=== PATIENT | female | born 1980 | race African-American/Black ===

== ENCOUNTER 2017-01-16 22:24 | Emergency (ER) | payer MEDICAID ==
[~2017-01-16] VITALS: Ht 157.5 cm; Wt 74.0 kg
[~2017-01-16 22:24] MED LIST: CARB200T PO; NORC5TAB PO; PANT40TA3 PO; REST15CA PO
[2017-01-16 22:28] VITALS: BP 130/100; PULSE 92; RESP 14; TEMP 98.3; O2SAT 98
[2017-01-16] MEDS ORDERED: INDO50CA PO (22:58)
--- NOTE | 2017-01-16 23:06 | PD ---
HPI Chief Complaint: Musculoskeletal Complaint Time Seen by Provider: 23:06 Travel History International Travel<30 days: No Contact w/Intl Traveler<30days: No Traveled to known affect area: No History of Present Illness HPI 36-year-old female presents to the emergency department for evaluation left lower extremity pain. Patient has history of cervical cancer, underwent chemotherapy and is followed by Dr. Sandoval She is currently in remission. Patient was hospitalized in October for enteritis. He reports 2 weeks ago pain beginning in her left foot. She went to urgent care and they treated her for gout. She states the pain is only worsened and now involves the entire left lower extremity. The pain radiates up to her hip. Denies history of neuropathy. She has had no fever or chills. She has been taking indomethacin 3 times a day no resolution of her symptoms. She denies any weakness. No focal deficits. No other symptoms to report. PFSH Past Medical History Asthma: No Autoimmune Disease: No Cancer: Yes (HX OF CERVICAL CANCER) Cardiovascular Problems: No Chemotherapy: Yes (2007) COPD: Yes Cerebrovascular Accident: No Diminished Hearing: No Endocrine: No Gastrointestinal Disorders: Yes (COLOSTOMY) Genitourinary: No Headaches: Yes Hepatitis: No Hiatal Hernia: No Immune Disorder: No Kidney Stones: No Musculoskeletal: No Neurologic: Yes (SEIZURES ) Psychiatric: No Reproductive: No Respiratory: No Migraines: Yes Renal Failure: Yes Seizures: Yes (grand mal take carbomaapine) Tetanus Vaccination: < 5 Years Influenza Vaccination: No ?: Not LMP: DOES NOT GET ANY MORE : 6 Para: 4 Past Surgical History Abdominal Surgery: Yes (COLON RESECTION, COLOSTOMY PLACEMENT (2013)) Body Medical Devices: NONE Cardiac Surgery: No Section: Yes Ear Surgery: No Endocrine Surgery: No Eye Surgery: No Genitourinary Surgery: No Gynecologic Surgery: Yes () Oral Surgery: Yes (TEETH EXTRACTION) Thoracic Surgery: No Other Surgery: Yes Social History Alcohol Use: Yes (OCCASIONALLY) Tobacco Use: Yes (12 CIGARETTES/DAY) Substance Use: No (marijuana, months ago) Allergies-Medications (Allergen,Severity, Reaction): Coded Allergies: Penicillin (Verified Allergy, Severe, RASH, 01/16/17) Reported Meds & Prescriptions Reported Meds & Active Scripts Active Lortab (Hydrocodone-Acetaminophen) 5-325 Mg Tab 1 Tab PO Q6H PRN Reported Indomethacin 50 Mg Cap 50 Mg PO TID Take with food, milk, or antacids to decrease stomach adverse effects. Carbamazepine 200 Mg Tab 400 Mg PO Review of Systems Except as stated in HPI: all other systems reviewed are Neg Physical Exam Narrative GENERAL: Well-nourished, well-developed female patient in no acute distress SKIN: Warm and dry. HEAD: Normocephalic. EYES: No scleral icterus. No injection or drainage. NECK: Supple, trachea midline. No JVD or lymphadenopathy. CARDIOVASCULAR: Regular rate and rhythm without murmurs, gallops, or rubs. RESPIRATORY: Breath sounds equal bilaterally. No accessory muscle use. GASTROINTESTINAL: Abdomen soft, non-tender, nondistended. MUSCULOSKELETAL: No cyanosis, or edema. Equal strength bilateral lower extremity. Sensation intact distal lower extremities. Full flexion and extension of all the joints of the affected extremity. BACK: Nontender without obvious deformity. No CVA tenderness. Data Data Last Documented VS Vital Signs Date Time Temp Pulse Resp B/P Pulse Ox O2 Delivery O2 Flow Rate FiO2 01/17/17 01:50 98.9 76 18 123/55 100 01/16/17 22:28 Room Air Orders Iv Access Insert/Monitor (01/16/17 23:05) Complete Blood Count With Diff (01/16/17 23:05) Basic Metabolic Panel (Bmp) (01/16/17 23:05) Creatine Kinase (Cpk) (01/16/17 23:05) Hip, Uni(Ap&Lat) W Ap Pelvis (01/16/17 ) Morphine Inj (Morphine Inj) (01/16/17 23:15) Ondansetron Inj (Zofran Inj) (01/16/17 23:15) Ketorolac Inj (Toradol Inj) (01/16/17 23:15) Sodium Chlorid 0.9% 500 Ml Inj (Ns 500 M (01/16/17 23:15) Labs Laboratory Tests Test 01/16/17 23:40 White Blood Count 4.4 TH/MM3 Red Blood Count 3.91 MIL/MM3 Hemoglobin 12.2 GM/DL Hematocrit 36.8 % Mean Corpuscular Volume 94.2 FL Mean Corpuscular Hemoglobin 31.3 PG Mean Corpuscular Hemoglobin 33.2 % Concent Red Cell Distribution Width 14.5 % Platelet Count 380 TH/MM3 Mean Platelet Volume 7.1 FL Neutrophils (%) (Auto) 57.3 % Lymphocytes (%) (Auto) 35.2 % Monocytes (%) (Auto) 5.1 % Eosinophils (%) (Auto) 1.8 % Basophils (%) (Auto) 0.6 % Neutrophils # (Auto) 2.5 TH/MM3 Lymphocytes # (Auto) 1.5 TH/MM3 Monocytes # (Auto) 0.2 TH/MM3 Eosinophils # (Auto) 0.1 TH/MM3 Basophils # (Auto) 0.0 TH/MM3 CBC Comment DIFF FINAL Differential Comment Sodium Level 141 MEQ/L Potassium Level 3.9 MEQ/L Chloride Level 111 MEQ/L Carbon Dioxide Level 21.3 MEQ/L Anion Gap 9 MEQ/L Blood Urea Nitrogen 23 MG/DL Creatinine 1.24 MG/DL Estimat Glomerular Filtration 59 ML/MIN Rate Random Glucose 80 MG/DL Calcium Level 7.9 MG/DL Total Creatine Kinase 155 U/L MDM Medical Decision Making Medical Screen Exam Complete: Yes Emergency Medical Condition: Yes Medical Record Reviewed: Yes Differential Diagnosis Neuropathy versus radiculopathy versus septic joint versus septic arthritis versus metastatic disease Narrative Course 36-year-old female presents to emergency department for evaluation of left lower extremity pain. I have the patient with my attending physician Dr. Elizabeth. Based on the patient's history and recent illness, we'll draw basic labs and x-ray the hip. CBC is without acute concern. BMP is with BUN of 23, creatinine 1.24, GFR 59. Total creatine kinase is 155. Patient is given IV fluids. I have discussed with her the use of NSAIDs and limiting those based on her renal function. I will give her some additional pain control and encouraged follow-up with her primary care provider. I explained her that this may indeed be a neuropathy likely secondary to history of chemotherapy and encouraged her to discuss this with her primary care provider for possible alternatives the pain management. Diagnosis Primary Impression: Left leg pain Additional Impression: Renal insufficiency Referrals: Primary Care Physician Patient Instructions: General Instructions, Leg Pain (ED) Additional Instructions: Limit taking your NSAID pain medication Follow-up with your primary care provider Return immediately to the emergency department with any acute worsening of symptoms Med/Other Pt SpecificInfo: Med Stopped Scripts Hydrocodone-Acetaminophen (Lortab)5-325 Mg Tab1 Tab PO Q6H PRN (PAIN GREATER THAN 5) #12 TAB Ref 0 Prov:Zina Scott MD 01/17/17 Disposition: 01 DISCHARGE HOME Condition: Stable Adelaide Vital Jan 16, 2017 23:06
[2017-01-16] MEDS ORDERED: SODIUM CHLORID 0.9% 500 ML INJ 500 ML IV ONE (23:15)
[2017-01-16] MEDS ORDERED: ONDANSETRON HCL 4 MG/2 ML VIAL IV PUSH ONE (23:15)
[2017-01-16] MEDS ORDERED: MORPHINE SULFATE 4 MG/ML INJ IV PUSH ONE (23:15)
[2017-01-16] MEDS ORDERED: KETOROLAC TROMETHAMINE 30 MG/ML (IVP) VIAL IV PUSH ONE (23:15)
[2017-01-17 00:02] LABS: AUTOMATED NEUTROPHIL # 2.5 TH/MM3 (1.8-7.7); BASOPHIL % 0.6 % (0.0-2.0); EOSINOPHIL # 0.1 TH/MM3 (0-0.4); EOSINOPHIL % 1.8 % (0.0-4.0); HEMATOCRIT 36.8 % (35.0-46.0); HEMO FLAGS DIFF FINAL; LYMPH % 35.2 % (9.0-44.0); LYMPHOCYTE # 1.5 TH/MM3 (1.0-4.8); MEAN CELL VOLUME 94.2 FL (80.0-100.0); MEAN CORPUSCULAR HEMOGLOBIN 31.3 PG (27.0-34.0); MEAN CORPUSCULAR HGB CONC 33.2 % (32.0-36.0); MONO % 5.1 % (0.0-8.0); NEUT % 57.3 % (16.0-70.0); PLATELET COUNT 380 TH/MM3 (150-450); RED BLOOD COUNT 3.91 MIL/MM3 (4.00-5.30); RED CELL DISTRIBUTION WIDTH 14.5 % (11.6-17.2); WHITE BLOOD COUNT 4.4 TH/MM3 (4.0-11.0)
--- NOTE | 2017-01-17 00:06 | RADRPT ---
EXAM DATE/TIME: 01/16/2017 23:14 [facility] COMPARISON: No previous studies available for comparison. INDICATIONS : Left hip pain. MEDICAL HISTORY : Gout. SURGICAL HISTORY : None. ENCOUNTER: Initial ACUITY: 1 day PAIN SCORE: 6/10 LOCATION: Left hip FINDINGS: Examination of the left hip was performed with AP Pelvis. The primary and secondary trabecular patte rn of the femoral neck is intact. The hip joint is of normal width without significant sclerosis or bony hypertrophy. The acetabulum is grossly intact. CONCLUSION: 1. There is no evidence of acute fracture. Timothy Mckeon MD on January 17, 2017 at 0:04 Board Certified Radiologist. This report was verified electronically.
[2017-01-17 00:38] VITALS: RESP 16
[2017-01-17 01:23] LABS: BICARBONATE 21.3 MEQ/L (21.0-32.0); POTASSIUM 3.9 MEQ/L (3.5-5.1)
[2017-01-17] MEDS ORDERED: HYDR-3533 PO (01:35)
[2017-01-17 01:50] VITALS: BP 123/55; TEMP 98.9
== END 2017-01-17 01:58 | disposition home or self-care (01) ==
LOC: NEPB 22:24
DX: M79.605 Pain in left leg (principal); N28.9 Disorder of kidney and ureter, unspecified; F17.210 Nicotine dependence, cigarettes, uncomplicated; Z87.898 Personal history of other specified conditions
CPT/HCPCS: 73502; 80048; 82550; 85025; 96374; 96375; 99283; J1885; J2270; J2405; J7040

== ENCOUNTER 2017-01-29 14:19 | Emergency (ER) | payer MEDICAID, OTHER ==
[~2017-01-29 14:19] MED LIST changes: +HYDR-3533 PO; +INDO50CA PO; -NORC5TAB PO; -PANT40TA3 PO; -REST15CA PO
[2017-01-29 14:21] VITALS: BP 116/81; PULSE 116; RESP 16; TEMP 98.2; O2SAT 97
--- NOTE | 2017-01-29 16:33 | PD ---
HPI Chief Complaint: Injury Time Seen by Provider: 16:31 Travel History International Travel<30 days: No Contact w/Intl Traveler<30days: No Traveled to known affect area: No History of Present Illness HPI 36-year-old female presents to the emergency department with ongoing left lower leg and foot burning pain. Patient has been seen for this several times both at urgent care as well as here with x-rays of her hip performed at her last visit here. Patient has been treated with multiple doses of steroids as well as a trial of gabapentin without improvement. Patient was to follow-up with her primary care physician today to review the ongoing issue, however her Medicaid is still pending therefore she was sent here. Patient states she is been taking gabapentin 300 mg 3 times daily without improvement. Denies fever, chills, or other symptoms. She states the pain is across the entire dorsal foot , and is constant, but worse at night. She describes it as a burning achy pain. She states some mild swelling at times but currently not. There is been no specific injury to the area. There are no open wounds or erythema noted. Patient was treated recently for gout with indomethacin with worsening symptoms. PFSH Past Medical History Asthma: No Autoimmune Disease: No Cancer: Yes (HX OF CERVICAL CANCER) Cardiovascular Problems: No Chemotherapy: Yes (2007) COPD: Yes Cerebrovascular Accident: No Diminished Hearing: No Endocrine: No Gastrointestinal Disorders: Yes (COLOSTOMY) Genitourinary: No Headaches: Yes Hepatitis: No Hiatal Hernia: No Immune Disorder: No Kidney Stones: No Musculoskeletal: No Neurologic: Yes (SEIZURES ) Psychiatric: No Reproductive: No Respiratory: No Migraines: Yes Renal Failure: Yes Seizures: Yes (grand mal take carbomaapine) ?: Not : 6 Para: 4 Past Surgical History Abdominal Surgery: Yes (COLON RESECTION, COLOSTOMY PLACEMENT (2013)) Body Medical Devices: NONE Cardiac Surgery: No Section: Yes Ear Surgery: No Endocrine Surgery: No Eye Surgery: No Genitourinary Surgery: No Gynecologic Surgery: Yes () Oral Surgery: Yes (TEETH EXTRACTION) Thoracic Surgery: No Other Surgery: Yes Social History Alcohol Use: Yes (OCCASIONALLY) Tobacco Use: Yes (12 CIGARETTES/DAY) Substance Use: No (marijuana, months ago) Allergies-Medications (Allergen,Severity, Reaction): Coded Allergies: Penicillin (Verified Allergy, Severe, RASH, 01/16/17) Reported Meds & Prescriptions Reported Meds & Active Scripts Active Lortab (Hydrocodone-Acetaminophen) 5-325 Mg Tab 1 Tab PO Q6H PRN Reported Indomethacin 50 Mg Cap 50 Mg PO TID Take with food, milk, or antacids to decrease stomach adverse effects. Carbamazepine 200 Mg Tab 400 Mg PO Physical Exam Narrative GENERAL: Patient appears in no acute distress. SKIN: Warm and dry. Normal color. Normal turgor. No signs of open wound or cellulitis of the left foot. HEAD: Atraumatic. Normocephalic. EYES: Pupils equal and round. No scleral icterus. No injection or drainage. ENT: No nasal bleeding or discharge. Mucous membranes pink and moist. NECK: Trachea midline. No JVD. CARDIOVASCULAR: Regular rate and rhythm. Left foot pulses are 2+ and equal in both the dorsal pedal and posterior tibialis. RESPIRATORY: No accessory muscle use. Clear to auscultation. Breath sounds equal bilaterally. GASTROINTESTINAL: Abdomen soft, non-tender, nondistended. Hepatic and splenic margins not palpable. MUSCULOSKELETAL: Extremities without clubbing, cyanosis, or edema. No obvious deformities. Left foot appears normal with full range of motion and strength. Negative Homans sign. No point tenderness. Normal dorsiflexion and plantar flexion. NEUROLOGICAL: Awake and alert. No obvious cranial nerve deficits. Motor grossly within normal limits. Five out of 5 muscle strength in the arms and legs. Normal speech. PSYCHIATRIC: Appropriate mood and affect; insight and judgment normal. Data Data Last Documented VS Vital Signs Date Time Temp Pulse Resp B/P Pulse Ox O2 Delivery O2 Flow Rate FiO2 01/29/17 14:21 98.2 116 16 116/81 97 Room Air Orders Foot, Complete ([id number]) (01/29/17 16:03) [facility] Medical Decision Making Medical Screen Exam Complete: Yes Emergency Medical Condition: Yes Medical Record Reviewed: Yes Differential Diagnosis Left foot pain. Left ankle pain. Arthritis. Neuropathy. Narrative Course Patient is felt to be medically stable at time of exam. X-ray of the left foot is obtained. X-ray shows no acute findings. Per radiologist. My feeling is this is a neuralgia type pain. Patient is treated with gabapentin 300 mg 3 times daily to be increased to 600 mg 3 times daily in 3 days. Patient is given tramadol as well 50 mg one every 6 hours when necessary pain # 30. I do not feel an anti-inflammatory be beneficial for this patient as she has had multiple courses without improvement. Patient should follow-up with her primary care physician and perhaps be referred to a neurologist for further evaluation as needed. Diagnosis Primary Impression: Neuropathic pain of left foot Patient Instructions: General Instructions, Peripheral Neuropathy (ED) Additional Instructions: X-ray shows no acute findings. Per radiologist. My feeling is this is a neuralgia type pain. Patient is treated with gabapentin 300 mg 3 times daily to be increased to 600 mg 3 times daily in 3 days. Patient is given tramadol as well 50 mg one every 6 hours when necessary pain # 30. I do not feel an anti-inflammatory be beneficial for this patient as she has had multiple courses without improvement. Patient should follow-up with her primary care physician and perhaps be referred to a neurologist for further evaluation as needed. Med/Other Pt SpecificInfo: Prescription(s) given Disposition: 01 DISCHARGE HOME Condition: Stable Lewis Holly Jan 29, 2017 16:33
--- NOTE | 2017-01-29 16:49 | RADRPT ---
EXAM DATE/TIME: 01/29/2017 16:37 [facility] COMPARISON: FOOT LEFT COMPLETE ([id number]), June 06, 2015, 15:47. INDICATIONS : Left foot pain with no known injury. MEDICAL HISTORY : None. SURGICAL HISTORY : None. ENCOUNTER: Initial ACUITY: 1 month PAIN SCORE: 10/10 LOCATION: Left foot, dorsal surface. FINDINGS: Three view examination of the left foot demonstrates no soft tissue swelling, dislocation, or fractur e. The tarsal bones appear intact. The interphalangeal and metatarsophalangeal joints are intact. The calcaneus is intact. Bony mineralization is normal. CONCLUSION: Unremarkable examination of the left foot. Taqueria Aj MD on January 29, 2017 at 16:47 Board Certified Radiologist. This report was verified electronically.
[2017-01-29] MEDS ORDERED: GABA600T PO (17:03)
[2017-01-29] MEDS ORDERED: GABA300C5 PO (17:03)
[2017-01-29] MEDS ORDERED: TRAM50TA PO ×2 (17:03→17:04)
== END 2017-01-29 17:11 | disposition home or self-care (01) ==
LOC: NEPB 14:19
DX: G62.9 Polyneuropathy, unspecified (principal); M79.672 Pain in left foot; R20.8 Other disturbances of skin sensation
CPT/HCPCS: 73630; 99283

== ENCOUNTER 2018-02-18 16:18 | Emergency (ER) | payer SELFPAY ==
[~2018-02-18] VITALS: Ht 157.5 cm; Wt 50.0 kg
[~2018-02-18 16:18] MED LIST changes: +GABA300C5 PO; +GABA600T PO; +TRAM50TA PO
[2018-02-18 16:21] VITALS: BP 91/50; PULSE 96; RESP 15; TEMP 98.2; O2SAT 99
[2018-02-18] MEDS ORDERED: GABA600T PO (17:23)
--- NOTE | 2018-02-18 17:27 | PD ---
HPI Chief Complaint: Pain: Acute or Chronic Time Seen by Provider: 17:22 Travel History International Travel<30 days: No Contact w/Intl Traveler<30days: No Traveled to known affect area: No History of Present Illness HPI 37-year-old female with chronic neuropathy of the left foot presents to the ED requesting medication refill. She states that it's neuropathic pain with shooting quality, occasionally tingling and numbness. She denies limitations to range of motion or weakness of the foot. She denies acute injury. She states that she has not had any changes to her pain. Patient states that she takes 600 mg gabapentin 3 times a day, last dose a few days ago. PFSH Past Medical History Asthma: No Autoimmune Disease: No Cancer: Yes (HX OF CERVICAL CANCER) Cardiovascular Problems: No Chemotherapy: Yes COPD: Yes Cerebrovascular Accident: No Diminished Hearing: No Endocrine: No Gastrointestinal Disorders: Yes (COLOSTOMY) Genitourinary: No Headaches: Yes Hepatitis: No Hiatal Hernia: No Immune Disorder: No Kidney Stones: No Musculoskeletal: No Neurologic: Yes (SEIZURES ) Psychiatric: No Reproductive: No Respiratory: No Migraines: Yes Renal Failure: Yes Seizures: Yes (grand mal take carbomaapine) : 6 Para: 4 Past Surgical History Abdominal Surgery: Yes (COLON RESECTION, COLOSTOMY PLACEMENT (2013)) Body Medical Devices: NONE Cardiac Surgery: No Section: Yes Ear Surgery: No Endocrine Surgery: No Eye Surgery: No Genitourinary Surgery: No Gynecologic Surgery: Yes () Oral Surgery: Yes (TEETH EXTRACTION) Thoracic Surgery: No Other Surgery: Yes Social History Alcohol Use: Yes (OCCASIONALLY) Tobacco Use: Yes (12 CIGARETTES/DAY) Substance Use: No (marijuana, months ago) Allergies-Medications (Allergen,Severity, Reaction): Coded Allergies: penicillin G (Unverified Allergy, Severe, RASH, 07/14/17) Reported Meds & Prescriptions Reported Meds & Active Scripts Active Gabapentin 600 Mg Tab 600 Mg PO TID Reported Carbamazepine 200 Mg Tab 400 Mg PO Review of Systems Except as stated in HPI: all other systems reviewed are Neg Physical Exam Narrative GENERAL: Well-nourished, well-developed female in no acute distress. SKIN: Focused skin assessment warm/dry. HEAD: Normocephalic. EYES: No scleral icterus. No injection or drainage. NECK: Supple, trachea midline. No JVD or lymphadenopathy. CARDIOVASCULAR: Regular rate and rhythm without murmurs, gallops, or rubs. RESPIRATORY: Breath sounds equal bilaterally. No accessory muscle use. GASTROINTESTINAL: Abdomen soft, non-tender, nondistended. MUSCULOSKELETAL: No cyanosis, or edema. FOCUSED LEFT LOWER EXTREMITY EXAM: 2+ DP pulse. Foot is warm and well perfused. Patient retains full, active, painless ROM of the extremity. Neurovascularly intact distally. BACK: Nontender without obvious deformity. No CVA tenderness. Data Data Last Documented VS Vital Signs Date Time Temp Pulse Resp B/P (MAP) Pulse Ox O2 Delivery O2 Flow Rate FiO2 02/18/18 16:21 98.2 96 15 91/50 (64) 99 Orders Orders Gabapentin (Neurontin) (02/18/18 17:30) Ed Discharge Order (02/18/18 17:33) [facility] Medical Decision Making Medical Screen Exam Complete: Yes Emergency Medical Condition: Yes Differential Diagnosis chronic pain versus neuropathy versus medication refill versus other Narrative Course 37-year-old female with chronic neuropathy of the left foot presents to the ED requesting medication refill. he states that it's neuropathic pain with shooting quality, occasionally tingling and numbness. She denies limitations to range of motion or weakness of the foot. She states that she has not had any changes to her pain. Vitals reviewed. Exam of the foot is reassuring. Patient was prescribed a 1 months supply of gabapentin, first dose administered in the ED. She was advised to follow with her primary care for future refills. She indicated understanding of the instructions. She is stable and discharged home. Diagnosis Primary Impression: Neuropathic pain of left foot Referrals: Primary Care Physician Additional Instructions: Take medication as prescribed. Follow with your primary care for future refills. Return to the ED for any urgent or emergent medical condition. Scripts Gabapentin (Gabapentin) 600 Mg Tab 600 MG PO TID, #90 TAB 0 Refills Prov: Gerry Pompa MD 02/18/18 Disposition: 01 DISCHARGE HOME Condition: Stable Urmila Mckeon Feb 18, 2018 17:27
[2018-02-18] MEDS ORDERED: GABAPENTIN 300 MG CAP PO SCH (17:30)
== END 2018-02-18 18:08 | disposition home or self-care (01) ==
LOC: NEPK 16:18
DX: M79.2 Neuralgia and neuritis, unspecified (principal); M79.672 Pain in left foot; F17.210 Nicotine dependence, cigarettes, uncomplicated
CPT/HCPCS: 99283

== ENCOUNTER 2018-03-02 15:36 | Emergency (ER) | payer SELFPAY ==
[~2018-03-02] VITALS: Ht 157.5 cm; Wt 50.0 kg
[~2018-03-02 15:36] MED LIST changes: -GABA300C5 PO; -HYDR-3533 PO; -INDO50CA PO; -TRAM50TA PO
[2018-03-02 15:50] VITALS: BP 99/56; PULSE 100; RESP 18; TEMP 99.4; O2SAT 100
--- NOTE | 2018-03-02 16:46 | PD ---
HPI Chief Complaint: Pain: Acute or Chronic Time Seen by Provider: 16:16 Travel History International Travel<30 days: No Contact w/Intl Traveler<30days: No Traveled to known affect area: No History of Present Illness HPI 37-year-old female presents to the emergency department "to generate a bill to meet her share of cost for her Medicaid." Says she is on share of cost insurance and she needs to meet her share of cost to get in with a doctor, so she was told to come to the emergency room to generate a bill to meet her share of cost. She says she has history of chronic left foot pain and her foot constantly hurts. She takes gabapentin for her foot pain and last took it last week because she cannot afford a refill. She was seen here on February 18 and was given a prescription for a refill. She says she took the prescription to [facility] today and her Medicaid has not opened up to fill the prescription. She also has history of epilepsy and is on carbamazepine. She says she has a few pills left at home and a prescription refill at [facility]. She denies chest pain , shortness of breath, abdominal pain, fevers, vomiting. She has no emergent medical complaints today. She has not taken any other medications or tried any other treatments for her foot pain. Symptoms are mild to moderate in severity. No primary care provider. Dr. Allen is the doctor she sees for her left foot neuropathy. Allergies to penicillin. History of epilepsy, cervical cancer, colostomy, neuropathy. Has no other medical complaints. No other modifying factors or associated signs and symptoms. History Past Medical Histgory Tetanus Vaccination: Unknown Hx Cancer: Yes (HX OF CERVICAL CANCER 2007) Hx Chemotherapy: Yes Social History Alcohol Use: Yes (OCCASIONALLY) Tobacco Use: Yes (12 CIGARETTES/DAY) Allergies-Medications (Allergen,Severity, Reaction): Coded Allergies: penicillin G (Unverified Allergy, Severe, RASH, 03/02/18) Reported Meds & Prescriptions Reported Meds & Active Scripts Active Gabapentin 600 Mg Tab 600 Mg PO TID Reported Carbamazepine 200 Mg Tab 400 Mg PO Review of Systems Except as stated in HPI: all other systems reviewed are Neg Physical Exam Narrative GENERAL: Well-nourished, well-developed black female patient, in no acute distress SKIN: Warm and dry. HEAD: Atraumatic. Normocephalic. EYES: Pupils equal and round. No scleral icterus. No injection or drainage. ENT: Mucosa pink and moist. Airway patent. NECK: Trachea midline. CARDIOVASCULAR: Regular rate. RESPIRATORY: No accessory muscle use. GASTROINTESTINAL: Flat. MUSCULOSKELETAL: Left foot without erythema, edema, ecchymosis; no obvious deformity; 2+ pedal pulse; sensory intact. No obvious deformities. No clubbing. No cyanosis. No edema. NEUROLOGICAL: Awake and alert. Oriented 3. No obvious cranial nerve deficits. Motor grossly within normal limits. Normal speech. PSYCHIATRIC: Appropriate mood and affect; insight and judgment normal. Data Data Last Documented VS Vital Signs Date Time Temp Pulse Resp B/P (MAP) Pulse Ox O2 Delivery O2 Flow Rate FiO2 03/02/18 15:50 99.4 100 18 99/56 (70) 100 MDM Medical Screen Exam Complete: Yes Emergency Medical Condition: No Differential Diagnosis Chronic foot pain, neuropathy Narrative Course 37-year-old female with chronic left foot pain and neuropathy of the left foot. She presents to the emergency department wanting to generate a bill so she can meet her share of cost, so she can see a primary care provider and so the insurance will pay for her prescription medications. The patient has prescription refills for gabapentin and carbamazepine for her epilepsy. The patient has no emergent medical complaints at this time. Vital signs are stable and the patient is stable for outpatient follow-up and treatment. The patient has no urgent or emergent medical complaints. There is no emergent or urgent medical need at this time. I instructed the patient to follow up with their primary care provider. A medical screening exam was performed: At the time of evaluation the presenting medical condition was determined not to be of an emergent nature. The patient was given the option of receiving additional care, but declined. Patient was given options for additional community resources from which to obtain care. The Patient Has Been advised to seek medical attention for their presenting complaint. The patient has been advised to return to the ER at any time if an emergent condition develops. Primary Impression: Encounter for medical screening examination Condition: Stable Darshana Mar Mar 02, 2018 16:46
== END 2018-03-02 16:51 | disposition left against medical advice (07) ==
LOC: NEPK 15:36
DX: M79.672 Pain in left foot (principal)
CPT/HCPCS: 99281

== ENCOUNTER 2018-05-31 21:06 | Inpatient (IN) ==
[2018-06-01] MEDS ORDERED: HYDROmorphone PF Inj 1 MG/ML Ampul IV.PUSH STA (00:35)
[2018-06-01] MEDS ORDERED: HYDROmorphone PF Inj 2 MG/ML Vial IV.PUSH ONE (01:00)
--- NOTE | 2018-06-01 01:22 | ED ---
HPI General Chief Complaint: Abdominal Pain Stated Complaint: Pt states kidney stones/vomiting Time Seen by Provider: 06/01/18 00:19 Source: patient, RN notes reviewed and old records reviewed History of Present Illness HPI narrative: Is a 29-year-old woman presents emerged from complaining of severe left flank pain ongoing nausea vomiting. She was seen yesterday for kidney stone. She was diagnosed with a 9 mm proximal left ureteral stone. This spoke with Dr. Emani Batista Pain was controlled at that time. She was discharged for outpatient follow-up. Since being discharged she has had worsening severe pain associate with nausea vomiting is been ongoing and uncontrolled despite Zofran and Lortab at home. Is been constant severe and persistent since yesterday. Related Data Home Medications Medication Instructions Recorded Confirmed carbamazepine 400 mg PO BID 05/30/18 06/01/18 gabapentin 600 mg PO TID 05/30/18 06/01/18 Previous Rx's Medication Instructions Recorded hydrocodone-acetaminophen [[place]] 1 tab PO Q6-8H PRN #10 tab 05/30/18 ondansetron [Zofran ODT] 4 mg PO Q6H #14 tab 05/30/18 Allergies Allergy/AdvReac Type Severity Reaction Status Date / Time penicillin G Allergy Severe RASH Verified 05/30/18 03:22 Review of Systems ROS Unobtainable All other systems reviewed negative except as stated in HPI [facility] Medical History Medical History Kidney stones (Acute) Cervical cancer (Acute) Colostomy care (Acute) Neuropathy (Acute) Seizures (Acute) Surgical History Surgical History History of colon resection (Acute) Social History Social History Substance History: No History of Abuse Second Hand Smoke Exposure: No Smoking Status: Former smoker How Often Do You Have a Drink Containing Alcohol: Never Recent Travel in [place] within the Last 8 Weeks: No Recent Out of Country Travel within the Last 8 Weeks: No Immunization History Tetanus Immunization: Never Vaccinated Hx Influenza Vaccine This Season: No Exam Narrative Exam Narrative: GENERAL: Well-appearing 29-year-old woman, appears uncomfortable , vomiting, and a lot of pain. SKIN: Focused skin assessment warm/dry. HEAD: Atraumatic. Normocephalic. EYES: Pupils equal and round. No scleral icterus. No injection or drainage. ENT: No nasal bleeding or discharge. Mucous membranes pink and moist. NECK: Trachea midline. No JVD. CARDIOVASCULAR: Regular rate and rhythm. No murmur appreciated. RESPIRATORY: No accessory muscle use. Clear to auscultation. Breath sounds equal bilaterally. GASTROINTESTINAL: Abdomen soft, non-tender, nondistended. Hepatic and splenic margins not palpable. MUSCULOSKELETAL: No obvious deformities. No clubbing. No cyanosis. No edema. NEUROLOGICAL: Awake and alert. No obvious cranial nerve deficits. Motor grossly within normal limits. Normal speech. PSYCHIATRIC: Appropriate mood and affect; insight and judgment normal. Course Initial Documented Vital Signs Temperature 98.7 F 05/31/18 22:00 Pulse Rate 68 05/31/18 22:00 Respiratory Rate 20 05/31/18 22:00 Blood Pressure 133/73 05/31/18 22:00 Pulse Oximetry 100 05/31/18 22:00 Last Documented Vital Signs Temperature 98.7 F 05/31/18 22:00 Pulse Rate 58 L 06/01/18 01:24 Respiratory Rate 18 06/01/18 01:24 Blood Pressure 121/78 06/01/18 01:24 Pulse Oximetry 97 06/01/18 01:24 Medical Decision Making [facility] Narrative Medical decision making narrative: 29-year-old woman with a known 9 mm left proximal ureteral stone. Pain uncontrolled at home. Will check labs. Likely admission for evaluation treatment. Lab Data Result diagrams: 06/01/18 01:20 06/01/18 01:20 Lab Results 06/01/18 06/01/18 Range/Units 01:20 01:20 WBC 6.6 (4.0-11.0) th/mm3 RBC 3.35 L (4.00-5.30) mil/mm3 Hgb 10.7 L D (11.6-15.3) gm/dL Hct 32.2 L (35.0-46.0) % MCV 96.3 (80.0-100.0) fL MCH 32.0 (27.0-34.0) pg MCHC 33.3 (32.0-36.0) % RDW 13.7 (11.6-17.2) % Plt Count 336 (150-450) th/mm3 MPV 7.3 (7.0-11.0) fL Neut % (Auto) 80.6 H (16.0-70.0) % Lymph % (Auto) 14.3 (9.0-44.0) % [place] % (Auto) 4.2 (0.0-8.0) % Eos % (Auto) 0.0 (0.0-4.0) % Baso % (Auto) 0.9 (0.0-2.0) % Neut # (Auto) 5.3 (1.8-7.7) th/mm3 Lymph # (Auto) 0.9 L (1.0-4.8) th/mm3 [place] # (Auto) 0.3 (0.0-0.9) th/mm3 Eos # (Auto) 0.0 (0.0-0.4) th/mm3 Baso # (Auto) 0.1 (0.0-0.2) th/mm3 WBC Differential . Differential Comment Auto diff final Sodium 143 (136-145) meq/L Potassium 4.0 (3.5-5.1) meq/L Chloride 109 H (98-107) meq/L Carbon Dioxide 24.7 (21.0-32.0) meq/L Anion Gap 9 (5-15) meq/L BUN 15 (7-18) mg/dL Creatinine 1.29 H (0.50-1.00) mg/dL Estimated GFR 56 L (>89) mL/min Random Glucose 97 (74-106) mg/dL Calcium 7.5 L (8.5-10.1) mg/dL Total Bilirubin 0.2 (0.2-1.0) mg/dL AST 28 (15-37) U/L ALT 40 (10-53) U/L Alkaline Phosphatase 88 (45-117) U/L Total Protein 6.3 L D (6.4-8.2) g/dL Albumin 2.6 L (3.4-5.0) g/dL Discharge Plan Discharge Disposition Patient Disposition: 29 Still Patient Discharge Condition Condition: Stable Discharge Details Discharge Problem: Renal lithiasis Physicians Team ED Provider: Taqueria Mustafa Primary Care Provider: Rakan Acuna Attending Provider: Lawson Mejia Discharge Interventions Interventions: Vital Signs Last Done: 06/01/18 01:24 Status ED Status: Admitted Observation Patient
[2018-06-01 01:41] LABS: Baso # (Auto) 0.1 th/mm3 (0.0-0.2); Baso % (Auto) 0.9 % (0.0-2.0); Hematocrit 32.2 % (35.0-46.0); Hemoglobin 10.7 gm/dL (11.6-15.3); Lymph # (Auto) 0.9 th/mm3 (1.0-4.8); Lymph % (Auto) 14.3 % (9.0-44.0); Mean Corpuscular HGB Conc 33.3 % (32.0-36.0); Mean Corpuscular Volume 96.3 fL (80.0-100.0); Mean Platelet Volume 7.3 fL (7.0-11.0); Mono # (Auto) 0.3 th/mm3 (0.0-0.9); Mono % (Auto) 4.2 % (0.0-8.0); Neut # (Auto) 5.3 th/mm3 (1.8-7.7); Neut % (Auto) 80.6 % (16.0-70.0); Platelet Count 336 th/mm3 (150-450); Red Blood Count 3.35 mil/mm3 (4.00-5.30); Red Cell Distribution Width 13.7 % (11.6-17.2); White Blood Count 6.6 th/mm3 (4.0-11.0)
[2018-06-01 01:59] LABS: Alkaline Phosphatase 88 U/L (45-117); Total Protein 6.3 g/dL (6.4-8.2)
[2018-06-01 02:02] LABS: Alanine Aminotransferase 40 U/L (10-53); Albumin 2.6 g/dL (3.4-5.0); Anion Gap 9 meq/L (5-15); Aspartate Aminotransferase 28 U/L (15-37); Blood Urea Nitrogen 15 mg/dL (7-18); Calcium 7.5 mg/dL (8.5-10.1); Carbon Dioxide 24.7 meq/L (21.0-32.0); Chloride 109 meq/L (98-107); Glomerular Filtration Rate 56 mL/min (>89); Glucose,Random 97 mg/dL (74-106); Sodium 143 meq/L (136-145)
[2018-06-01] MEDS ORDERED: Temazepam 15 MG Capsule PO PRN (02:45)
[2018-06-01] MEDS ORDERED: Bisacodyl 10 MG Supp RECTAL PRN (02:45)
[2018-06-01] MEDS ORDERED: Acetaminophen 325 MG Tablet PO PRN (02:45)
[2018-06-01] MEDS ORDERED: Morphine Sulfate Inj 2 MG/ML Vial IV.PUSH PRN ×2 (02:50→09:22)
[2018-06-01] MEDS ORDERED: HYDROmorphone PF Inj 2 MG/ML Vial IV.PUSH PRN (03:52)
[2018-06-01] MEDS ORDERED: Morphine Inj 4 MG/ML Vial IV.PUSH PRN (04:00)
[2018-06-01] MEDS: Sod Chloride 0.9% Inj 1,000 ML IV.CONT SCH ×3 (04:04→14:28)
--- NOTE | 2018-06-01 04:13 | P.HPIM ---
History of Present Illness Primary Care Physician: Rakan Acuna Chief Complaint: abdominal pain History of Present Illness: 37 y/o female with a history of cervical cancer, bowel resection and neuropathy presented to the ED with increased abdominal pain. Patient was seen in the ED yesterday and was found to have a 9mm kidney stone and discharged to follow up outpatient with Dr. Kaur. She states she called the office and found out they do not take her insurance so she was unable to get an appointment. She states the pain and nausea worsened. She complains of sharp stabbing, constant, 10/10 abdominal pain with radiation to her back, worse with movement, slightly better with pain medication, with associated nausea and vomiting. She denies any chest pain, fever or chills. - Diagnosis (1) Urolithiasis - Inpatient Certification If this patient has been admitted as an Inpatient: I certify that the inpatient services were ordered in accordance with Medicare regulations governing the order. This includes certification that hospital inpatient services are reasonable and necessary and in the case of services not specified as inpatient-only under 42 CFR 419.22(n), that they are appropriately provided as inpatient services in accordance to with the 2-midnight benchmark under 43 CFR 412.3(e) Review of Systems All other systems reviewed negative except as stated in HPI PMFSH - History History Provided By: Patient - Medical History Medical History: Medical History (Last Reviewed 06/01/18 @ 01:21 by Taqueria Mustafa MD) Kidney stones Cervical cancer Colostomy care Neuropathy Seizures - Surgical History Surgical History: Surgical History (Last Reviewed 06/01/18 @ 01:21 by Taqueria Mustafa MD) History of colon resection - Family History Family History: Family History (Last Updated 06/01/18 @ 03:59 by LAUREEN Springer) Other No family history of cardiovascular disease - Tobacco History Second Hand Smoke Exposure: No Tobacco Use In Past 30 Days: No Smoking Status: Former smoker - Alcohol History How Often Do You Have a Drink Containing Alcohol: Never - Substance Use History Substance History: No History of Abuse - Travel History Recent Travel in the [place] Within the Last 8 Weeks: No Recent Travel Out of the Country Within the Last 8 Weeks: No - Immunization History Tetanus Immunization: Never Vaccinated Hx Influenza Vaccine This Season: No Medications and Allergies Active Medications: Active Medications Acetaminophen (Tylenol) 650 mg PO Q4H PRN PRN Reason: Temp > 100.4 Al Hydroxide/Mg Hydroxide (Milk Of Magnesia Liq) 30 ml PO Q12H PRN PRN Reason: Mild Constipation Bisacodyl (Dulcolax Supp) 10 mg RECTAL DAILY PRN PRN Reason: SEVERE CONSITIPATION Carbamazepine (Tegretol) 400 mg PO BID SURINDER Sodium Chloride (Ns Inj) 1,000 mls @ 100 mls/hr IV.CONT .Q10H SURINDER Lactulose (Lactulose Liq) 30 ml PO DAILY PRN PRN Reason: SEVERE CONSITIPATION Metoclopramide HCl (Reglan Inj) 5 mg IV.PUSH Q6HR PRN; Protocol PRN Reason: NAUSEA OR VOMITING Morphine Sulfate (Morphine Inj) 2 mg IV.PUSH Q3H PRN PRN Reason: PAIN SCALE 1 TO 10 Non-Formulary Medication (Gabapentin [Gabapentin]) 600 mg PO TID SURINDER Senna/Docusate Sodium (Silvana-Colace) 1 tab PO BID SURINDER Sennosides (Senokot) 17.2 mg PO Q12H PRN PRN Reason: Moderate Constipation Temazepam (Restoril) 15 mg PO HS PRN PRN Reason: INSOMNIA Allergies Allergy/AdvReac Type Severity Reaction Status Date / Time penicillin G Allergy Severe RASH Verified 05/30/18 03:22 Home Medications Medication Instructions Recorded Confirmed Type carbamazepine 400 mg PO BID 05/30/18 06/01/18 History gabapentin 600 mg PO TID 05/30/18 06/01/18 History Exam Vital signs: Vital Signs 05/31/18 22:00 06/01/18 01:24 Temperature 98.7 F Pulse Rate 68 58 L Respiratory Rate 20 18 Blood Pressure 133/73 121/78 Pulse Oximetry 100 97 Intake & Output 05/31/18 05/31/18 06/01/18 06:59 18:59 06:59 Weight 46.662 kg - Constitutional mild distress - Routine HEENT Exam Head: Present: normocephalic Eye: Present: EOMI, PERRL - Routine Neck Exam Present: supple, full ROM - Routine Respiratory Exam Absent: accessory muscle use, wheezes, crackles - Routine Cardiovascular Exam Present: RRR. Absent: murmur, gallop, rubs - Routine Abdominal Exam Present: soft, tenderness, guarding - Routine Extremities Exam Present: full ROM. Absent: cyanosis, clubbing, edema - Routine Skin Exam Present: intact - Routine Neurological Exam Present: alert, oriented X3 Results - Labs CBC & Chem 7: 06/01/18 01:20 06/01/18 01:20 Labs: Short CBC 06/01/18 Range/Units 01:20 WBC 6.6 (4.0-11.0) th/mm3 Hgb 10.7 L D (11.6-15.3) gm/dL Hct 32.2 L (35.0-46.0) % Plt Count 336 (150-450) th/mm3 BMP 06/01/18 01:20 Sodium 143 Potassium 4.0 Chloride 109 H Carbon Dioxide 24.7 BUN 15 Creatinine 1.29 H Calcium 7.5 L Liver Function 06/01/18 Range/Units 01:20 Total Bilirubin 0.2 (0.2-1.0) mg/dL AST 28 (15-37) U/L ALT 40 (10-53) U/L Alkaline Phosphatase 88 (45-117) U/L Albumin 2.6 L (3.4-5.0) g/dL Caprini VTE Risk Assessment Caprini VTE Risk Assessment: No/Low Risk (score <= 1) Caprini Risk Assessment Model: Point Value = 1 Point Value = 2 Point Value = 3 Point Value = 5 Age 41-60 Minor surgery BMI > 25 kg/m2 Swollen legs Varicose veins or History of unexplained or recurrent spontaneous Oral contraceptives or hormone replacement Sepsis (< 1 month) Serious lung disease, including pneumonia (< 1 month) Abnormal pulmonary function Acute myocardial infarction Congestive heart failure (< 1 month) History of inflammatory bowel disease Medical patient at bed rest Age 61-74 Arthroscopic surgery Major open surgery (> 45 min) Laparoscopic surgery (> 45 min) Malignancy Confined to bed (> 72 hours) Immobilizing plaster cast Central venous access Age >= 75 History of VTE Family history of VTE Factor V Leiden Prothrombin [id number] Lupus anticoagulant Anticardiolipin antibodies Elevated serum homocysteine Heparin-induced thrombocytopenia Other congenital or acquired thrombophilia Stroke (< 1 month) Elective arthroplasty Hip, pelvis, or leg fracture Acute spinal cord injury (< 1 month) Prophylaxis Regimen: Total Risk Factor Score Risk Level Prophylaxis Regimen 0-1 Low Early ambulation 2 Moderate Order ONE of the following: *Sequential Compression Device (SCD) *Heparin 5000 units SQ BID 3-4 Higher Order ONE of the following medications: *Heparin 5000 units SQ TID *Enoxaparin/Lovenox 40 mg SQ daily (WT < 150 kg, CrCl > 30 mL/min) *Enoxaparin/Lovenox 30 mg SQ daily (WT < 150 kg, CrCl > 10-29 mL/min) *Enoxaparin/Lovenox 30 mg SQ BID (WT < 150 kg, CrCl > 30 mL/min) AND/OR *Sequential Compression Device (SCD) 5 or more Highest Order ONE of the following medications: *Heparin 5000 units SQ TID (Preferred with Epidurals) *Enoxaparin/Lovenox 40 mg SQ daily (WT < 150 kg, CrCl > 30 mL/min) *Enoxaparin/Lovenox 30 mg SQ daily (WT < 150 kg, CrCl > 10-29 mL/min) *Enoxaparin/Lovenox 30 mg SQ BID (WT < 150 kg, CrCl > 30 mL/min) AND *Sequential Compression Device (SCD) Assessment and Plan - Assessment (1) Urolithiasis Code(s): N20.9 - Urinary calculus, unspecified Status: Acute - Plan Urolithiasis with intractable pain Abdomen/pelvis CT reviewed and shows 9mm calculus in proximal left ureter with mild left hydronephrosis and obstructive uropathy -Consult urology for recommendations -Pain management with IV Morphine and Dilaudid -antiemetics as needed Neuropathy, chronic -resume home gabapentin Seizures, chronic -Resume home carbamazepine -seizure precautions DVT prophylaxis: SCDs Discussed Condition With: Patient and RN
[2018-06-01] MEDS: carBAMazepine 200 MG Tablet PO SCH ×2 (08:17→21:05)
[2018-06-01] MEDS: Senna/Docusate Sodium 8.6/50 MG Tablet PO SCH ×2 (08:17→21:05)
[2018-06-01] MEDS: Gabapentin 300 MG Capsule PO SCH ×3 (08:17→18:40)
--- NOTE | 2018-06-01 08:19 | P.CONURO ---
History of Present Illness Consult date: 06/01/18 Requesting Physician: Jeniffer Ramirez Reason for Consult: Obstructing left ureteral calculus Primary Care Provider: Rakan Acuna Family Provider: Rakan Acuna Chief Complaint: abdominal pain History of Present Illness: 37-year-old female who presented to the emergency room on May 30 of this year with left flank pain. Workup included a CT scan that demonstrated a 9 mm obstructing left proximal ureteral calculus. Patient was treated and released and advised to follow-up with Dr. Kaur. Patient represented to the emergency room with worsening left flank pain and reports that she was unable to schedule an appointment with as he did not take her insurance. I reviewed the actual recent CT scan images that demonstrated multiple small bilateral renal calculi and a 9 mm left proximal ureteral calculus causing hydronephrosis. At the time of consultation the patient's pain was well managed. She denied dysuria or gross hematuria. Review of Systems Gastrointestinal: Reports abdominal pain (Left side) Genitourinary: Denies blood in urine Musculoskeletal: Reports back pain (Left flank) PMFSH - History History Provided By: Patient - Medical History Medical History: Medical History (Last Reviewed 06/01/18 @ 01:21 by Taqueria Mustafa MD) Kidney stones Cervical cancer Colostomy care Neuropathy Seizures - Surgical History Surgical History: Surgical History (Last Reviewed 06/01/18 @ 01:21 by Taqueria Mustafa MD) History of colon resection - Family History Family History: Family History (Last Updated 06/01/18 @ 03:59 by LAUREEN Springer) Other No family history of cardiovascular disease - Tobacco History Second Hand Smoke Exposure: No Tobacco Use In Past 30 Days: No Smoking Status: Former smoker - Alcohol History How Often Do You Have a Drink Containing Alcohol: Never - Substance Use History Substance History: No History of Abuse - Travel History Recent Travel in the [place] Within the Last 8 Weeks: No Recent Travel Out of the Country Within the Last 8 Weeks: No - Immunization History Tetanus Immunization: Never Vaccinated Hx Influenza Vaccine This Season: No Medications and Allergies Active Medications: Active Medications Acetaminophen (Tylenol) 650 mg PO Q4H PRN PRN Reason: Temp > 100.4 Al Hydroxide/Mg Hydroxide (Milk Of Magnesia Liq) 30 ml PO Q12H PRN PRN Reason: Mild Constipation Bisacodyl (Dulcolax Supp) 10 mg RECTAL DAILY PRN PRN Reason: SEVERE CONSITIPATION Carbamazepine (Tegretol) 400 mg PO BID SURINDER Gabapentin (Neurontin) 600 mg PO TID SURINDER Hydromorphone HCl (Dilaudid Pf Inj) 1 mg IV.PUSH Q3H PRN PRN Reason: PAIN SCALE 6 TO 10 Last Admin: 06/01/18 07:51 Dose: 1 mg Sodium Chloride (Ns Inj) 1,000 mls @ 100 mls/hr IV.CONT .Q10H SURINDER Last Admin: 06/01/18 04:04 Dose: 100 mls/hr Lactulose (Lactulose Liq) 30 ml PO DAILY PRN PRN Reason: SEVERE CONSITIPATION Metoclopramide HCl (Reglan Inj) 5 mg IV.PUSH Q6HR PRN; Protocol PRN Reason: NAUSEA OR VOMITING Last Admin: 06/01/18 03:58 Dose: 5 mg Morphine Sulfate (Morphine Inj) 2 mg IV.PUSH Q3H PRN PRN Reason: PAIN SCALE 1 TO 5 OR COUGHING Last Admin: 06/01/18 04:09 Dose: 2 mg Ondansetron HCl (Zofran Odt) 4 mg PO Q6H PRN PRN Reason: nausea/ vomiting Senna/Docusate Sodium (Silvana-Colace) 1 tab PO BID [facility] Sennosides (Senokot) 17.2 mg PO Q12H PRN PRN Reason: Moderate Constipation Temazepam (Restoril) 15 mg PO HS PRN PRN Reason: INSOMNIA Allergies Allergy/AdvReac Type Severity Reaction Status Date / Time penicillin G Allergy Severe RASH Verified 05/30/18 03:22 Home Medications Medication Instructions Recorded Confirmed Type carbamazepine 400 mg PO BID 05/30/18 06/01/18 History gabapentin 600 mg PO TID 05/30/18 06/01/18 History Physical Exam Vital Signs - 24 hr 05/31/18 22:00 06/01/18 01:24 06/01/18 04:00 Temperature 98.7 F 98.2 F Pulse Rate 68 58 L 52 L Respiratory Rate 20 18 16 Blood Pressure 133/73 121/78 127/81 Pulse Oximetry 100 97 100 06/01/18 06:27 Temperature Pulse Rate Respiratory Rate 21 Blood Pressure Pulse Oximetry Physical Exam: GENERAL: This is a well-nourished, well-developed patient, in no apparent distress. SKIN: No rashes, ecchymoses or lesions. Cool and dry. HEAD: Atraumatic. Normocephalic. No temporal or scalp tenderness. EYES: Pupils equal round and reactive. Extraocular motions intact. No scleral icterus. No injection or drainage. ENT: Nose without bleeding, purulent drainage or septal hematoma. Throat without erythema, tonsillar hypertrophy or exudate. Uvula midline. Airway patent. NECK: Trachea midline. No JVD or lymphadenopathy. Supple, nontender, no meningeal signs. CARDIOVASCULAR: Regular rate and rhythm without murmurs, gallops, or rubs. RESPIRATORY: Clear to auscultation. Breath sounds equal bilaterally. No wheezes , rales, or rhonchi. GASTROINTESTINAL: Abdomen soft, non-tender, nondistended. No hepato-splenomegaly , or palpable masses. No guarding. Colostomy functioning well. GENITOURINARY: No CVA tenderness. Bladder not distended MUSCULOSKELETAL: Extremities without clubbing, cyanosis, or edema. No joint tenderness, effusion, or edema noted. No calf tenderness. Negative Homans sign bilaterally. NEUROLOGICAL: Awake and alert. Cranial nerves II through XII intact. Motor and sensory grossly within normal limits. Five out of 5 muscle strength in all muscle groups. Normal speech. Lab results reviewed: Yes Laboratory Results - last 24 hr 06/01/18 06/01/18 01:20 01:20 WBC 6.6 RBC 3.35 L Hgb 10.7 L D Hct 32.2 L MCV 96.3 MCH 32.0 MCHC 33.3 RDW 13.7 Plt Count 336 MPV 7.3 Neut % (Auto) 80.6 H Lymph % (Auto) 14.3 [place] % (Auto) 4.2 Eos % (Auto) 0.0 Baso % (Auto) 0.9 Neut # (Auto) 5.3 Lymph # (Auto) 0.9 L [place] # (Auto) 0.3 Eos # (Auto) 0.0 Baso # (Auto) 0.1 WBC Differential . Differential Comment Auto diff final Sodium 143 Potassium 4.0 Chloride 109 H Carbon Dioxide 24.7 Anion Gap 9 BUN 15 Creatinine 1.29 H Estimated GFR 56 L Random Glucose 97 Calcium 7.5 L Total Bilirubin 0.2 AST 28 ALT 40 Alkaline Phosphatase 88 Total Protein 6.3 L D Albumin 2.6 L Result Diagrams: 06/01/18 01:20 06/01/18 01:20 Personally reviewed images: Yes Assessment and Plan - Assessment (1) Ureteral calculus, left Code(s): N20.1 - Calculus of ureter Status: Acute (2) Renal lithiasis Code(s): N20.0 - Calculus of kidney Status: Acute - Plan 1. patient to remain n.p.o. 2. Patient scheduled for cystoscopy, left retrograde pyelogram and left ureteral stent placement for sometime today 3. Will eventually require outpatient shockwave lithotripsy of this calculus
[2018-06-01] MEDS ORDERED: Chlorhexidine Gluconate 2% 1 Pack (2 Cloths) TOPICAL SCH (11:15)
[2018-06-01] MEDS ORDERED: Metoprolol Tartrate 25 MG Tablet PO SCH (11:15)
[2018-06-01] MEDS ORDERED: Sugammadex Inj 200 MG/2 ML Vial IV.PUSH ONE (11:37)
[2018-06-01] MEDS ORDERED: Levofloxacin 500 mg Premix Inj 500 MG/100 ML PIGGYBACK IV.SIG ONE (11:56)
[2018-06-01] MEDS ORDERED: Lidocaine PF 1% Inj 5 ML Syringe INFILTRATN ONE (12:00)
[2018-06-01] MEDS ORDERED: Sodium Chlor 0.9% Inj 500 ML IV.SIG SCH (12:00)
--- NOTE | 2018-06-01 12:25 | P.OP ---
- Preoperative Diagnosis (1) Ureteral calculus, left - Postoperative Diagnosis (1) Ureteral calculus, left Date of procedure: 06/01/18 Procedure: Cystoscopy, urethral dilation, left retrograde pyelogram and left ureteral stent placement Implants: Left ureteral stent Anesthesia: [facility] Surgeon: Taz Amos MD Estimated blood loss (mL): 0 Pathology: none sent Operation and Findings: Patient was brought to the cystoscopy suite and placed supine on the cystoscopy table. She was then placed under general anesthesia. She was then repositioned in the dorsolithotomy position and prepped and draped in normal sterile fashion. After an appropriate timeout was undertaken I proceeded with attempted insertion of the rigid cystoscope with the 20 German sheath utilizing the obturator. The urethral meatus was stenotic and precluded passage of the cystoscope. The meatus was then sequentially dilated utilizing female sounds starting at 18 German and dilating to 22 German. The cystoscope sheath was then easily advanced and the 30 lens was utilized. The bladder itself had patchy erythema consistent with post radiation changes. There were no bladder mucosal lesion suspicious for bladder tumor formation or any calculi noted. Both right and left ureteral orifices were in correct anatomic position. There was clear drainage on the right and none noted on the left. A sensor 0.035 wire was then advanced up the patient's left ureter and negotiated around the obstructing stone. A 6 German open-ended ureteral catheter was then utilized and this was advanced over the wire up to the point of the obstructing stone which was gently manipulated in a cephalad direction. The wire was withdrawn and a left retrograde pyelogram study performed to outline the collecting system. The wire was reintroduced and the open-ended catheter was exchanged for a 6 German 22 cm [place] stent. The stent was placed on the both cystoscopic and fluoroscopic guidance without difficulty. Once the stent was in proper position, the trailing string was removed. A 16 German 10 cc Davis catheter was placed and connected to gravity drainage. The patient tolerated the procedures without complications and was transferred to the PACU in satisfactory condition.
[2018-06-01] MEDS ORDERED: fentaNYL Citrate Inj 100 MCG/2 ML Ampul ONE (12:41)
--- NOTE | 2018-06-01 13:59 | P.PNADD ---
Addendum to Inpatient Note Additional information: Patient was evaluated earlier this morning prior to going to the OR. She was still having pain in the IV pain medication did not last very long. She admits to some nausea but no vomiting. She denies any chest pain or shortness of breath. Urolithiasis with intractable pain Abdomen/pelvis CT reviewed and shows 9mm calculus in proximal left ureter with mild left hydronephrosis and obstructive uropathy -Urology evaluated the patient. She is status post cystoscopy, urethral dilation , left retrograde pyelogram and left ureteral stent placement 06/01/18 -I have adjusted pt's pain meds to po norco as needed w IV morphine for breakthrough pain. Pain management with IV Morphine and Dilaudid -antiemetics as needed Neuropathy, chronic - on home gabapentin Seizures, chronic -on home carbamazepine -seizure precautions DVT prophylaxis: SCDs awaiting final clearance from urology. Cr 1.29 today. Repeat BMP in AM. will need pain control prior to d/c
[2018-06-02] MEDS: carBAMazepine 200 MG Tablet PO SCH (10:06)
[2018-06-02] MEDS: Gabapentin 300 MG Capsule PO SCH (10:06)
[2018-06-02] MEDS: Senna/Docusate Sodium 8.6/50 MG Tablet PO SCH (10:07)
--- NOTE | 2018-06-02 10:21 | P.PNIM ---
Subjective Interval history: Patient states that there is no further pain. She is doing well. She is urinating without difficulty. She would like to go home. Physical Exam Vital signs: Vital Signs 06/01/18 12:30 06/01/18 12:45 06/01/18 13:00 Temperature 98.2 F 98.2 F Pulse Rate 102 H 73 70 Respiratory Rate 12 12 12 Blood Pressure 132/81 120/79 117/78 Pulse Oximetry 100 99 99 06/01/18 13:14 06/01/18 14:27 06/01/18 17:28 Temperature 98.1 F 98.7 F Pulse Rate 64 62 Respiratory Rate 16 18 14 Blood Pressure 117/72 120/68 Pulse Oximetry 99 100 06/01/18 20:00 06/02/18 00:30 06/02/18 02:30 Temperature 99.1 F Pulse Rate 71 Respiratory Rate 16 18 17 Blood Pressure 109/64 Pulse Oximetry 99 06/02/18 04:30 06/02/18 08:00 Temperature 98.8 F Pulse Rate 85 Respiratory Rate 18 16 Blood Pressure 119/75 Pulse Oximetry 98 Intake & Output 06/01/18 06/02/18 06/02/18 18:59 06:59 18:59 Intake Total 1700 / 1700 Balance 1700 / 1700 Weight 46.662 kg Intake: IV 1000 / 1000 NS Inj 1,000 ML @ 100 mls/hr IV 1000 / 1000 .CONT .Q10H [facility] Rx#:[id number] Oral 50 / 50 Anesthesia Amount 650 / 650 Other: Weight On Admission 46.66 kg Narrative: GENERAL: This is a well-nourished, well-developed patient, in no apparent distress. CARDIOVASCULAR: Regular rate and rhythm without murmurs, gallops, or rubs. RESPIRATORY: Clear to auscultation. Breath sounds equal bilaterally. No wheezes , rales, or rhonchi. GASTROINTESTINAL: Abdomen soft, non-tender, nondistended. Normal active bowel sounds MUSCULOSKELETAL: Extremities without clubbing, cyanosis, or edema. NEURO: Alert & Oriented x4 to person, place, time, situation. Moves all ext x4 - Urinary Catheter Management Indwelling Urethral Catheter Cath placed during this visit: no Reason for continuing: Other continuation reason Results - Labs CBC & Chem 7: 06/01/18 01:20 07/03/18 01:20 - Procedures 06/01 Cystoscopy, urethral dilation, left retrograde pyelogram and left ureteral stent placement Assessment and Plan - Assessment (1) Urolithiasis Code(s): N20.9 - Urinary calculus, unspecified Status: Acute - Plan Urolithiasis with intractable pain with left hydronephrosis and obstructive uropathy Appreciate urology's recommendations and patient status postop day #1 cystoscope with urethral dilation dilatation with left ureteral stent placement -Patient's pain much better controlled, discharged to home with outpatient follow-up -antiemetics as needed Neuropathy, chronic -resume home gabapentin Seizures, chronic -Resume home carbamazepine -seizure precautions DVT prophylaxis: SCDs Discharge Planning: Discharge patient to home Condition on discharge: Improved Regular Diet as tolerated Ad Tami activity No new Rx written: Follow-up with primary care physician Follow-up with urology Dr. gupta
== END 2018-06-02 15:23 | disposition home or self-care (01) ==
LOC: NEDA 21:06 → NEPC 21:06 → NEPFCDU 06-01 04:13 → N06 06-01 22:03
PROVIDERS: ADMIT Family Medicine; ATTEND Family Medicine